=== PATIENT | male | born 1990 | race African-American/Black ===

== ENCOUNTER 2016-10-14 01:10 | Emergency (ER) | payer MEDICARE, MEDICAID ==
[~2016-10-14 01:10] MED LIST: SERO200T PO
[2016-10-14 01:14] VITALS: BP 141/99; PULSE 98; RESP 14; TEMP 98.4; O2SAT 98
== END 2016-10-14 02:00 | disposition left against medical advice (07) ==
LOC: NEPB 01:10
DX: R68.89 Other general symptoms and signs (principal)
CPT/HCPCS: 99281